=== PATIENT | male | born 1980 | race Caucasian/White ===

== ENCOUNTER 2018-03-04 16:35 | Emergency (ER) | payer SELFPAY ==
[2018-03-04] MEDS ORDERED: FENTANYL CITR 100 MCG/2 ML ONE (17:21)
[2018-03-04] MEDS ORDERED: INSULIN -REGULAR HUMAN 50 UNIT/0.5 ML ML ONE ×4 (17:21→18:42)
[2018-03-04] MEDS ORDERED: ONDANSETRON 4 MG/2 ML VIAL ONE ×2 (17:22→18:35)
[2018-03-04] MEDS ORDERED: NA CHLORIDE 0.9% 2,000 ML ONE (17:22)
[2018-03-04 17:44] LABS: Absolute Lymphocytes (CBC) 0.4 K/uL (0.7-4.9); Absolute Monocytes 0.5 K/uL (0.1-1.3); Absolute Neutrophil 2.6 K/uL (1.8-8.0); Basophils % 0.4 % (0-1.3); Eosinophils % 1.5 % (0-4.4); Hematocrit 37.8 % (39.6-49.0); Lymphocytes % 10.1 % (15.3-44.8); MCH 28.1 pg (27.0-35.0); MCV 87.1 fL (80-100); MPV 8.3 fL (7.6-11.3); Monocytes % 14.1 % (3.3-12.3); RBC Red Blood Cell Count 4.35 M/uL (4.33-5.43)
[2018-03-04] MEDS ORDERED: CLINDAMYCIN 900MG/D5W 900 MG/50 ML BAG IV ONE (17:45)
[2018-03-04 17:48] LABS: Protime INR 1.13
[2018-03-04 17:56] LABS: Bicarbonate 20 mEq/L (21-31); Lipase 22 U/L (22-51); Potassium 3.5 mEq/L (3.6-5.0); Sodium Level 129 mEq/L (135-145)
[2018-03-04 18:02] LABS: ALT/SGPT 31 IU/L (10-60); AST/SGOT 31 IU/L (10-42); Albumin 3.4 g/dL (3.2-5.5); Alkaline Phosphatase 135 IU/L (42-121); BUN Blood Urea Nitrogen 9 mg/dL (6-20); Bilirubin Direct 0.5 mg/dL (0-0.2); Bilirubin Total 1.4 mg/dL (0.3-1.2); Creatine Phosphokinase 115 IU/L (22-269); Magnesium 1.8 mg/dL (1.8-2.5); Protein, Total 7.5 g/dL (6.0-8.3)
[2018-03-04 18:03] LABS: Barbiturates NEGATIVE; Benzodiazepines NEGATIVE; Cocaine NEGATIVE; METHAMPHETAM NEGATIVE; Opiates NEGATIVE; Phencyclidine NEGATIVE; THC Cannibis NEGATIVE
[2018-03-04 18:05] LABS: CKMB Creatine Kinase MB 2.8 ng/ml (0.3-4.0)
[2018-03-04 18:10] LABS: Glucose Level 474 mg/dL (65-120)
[2018-03-04 18:11] LABS: Anisocytosis 1+; Blood Morphology Comment NOTED (NOT SEEN); Platelet Estimate DECR; Urine White Blood Cell Casts OK
[2018-03-04] MEDS ORDERED: POTASSIUM 25 MEQ EFFERV TAB ONE (18:27)
[2018-03-04] MEDS ORDERED: MORPHINE 4 MG/ML SYR ONE (18:35)
--- NOTE | 2018-03-04 18:40 | RAD REPORT ---
EXAM DESCRIPTION: CT - Facial Bones W Con Mpr - 03/04/2018 6:21 pm CLINICAL HISTORY: Facial pain TECHNIQUE: Computed axial tomography of the face was obtained. Coronal and sagittal reconstruction w as performed. 50 cc Isovue-300 Mr. intravenously with coronal sagittal reconstruction All CT scans are performed using dose optimization technique as appropriate and may include automated exposure control or mA/KV adjustment according to patient size. FINDINGS: The parotid and submandibular glands appear unremarkable. Fluid within the sinuses and mastoids is not noted. Globes are normal size and density. The periorbital fat is clear. Lucencies surrounds several teeth. A soft tissue abscess is not noted IMPRESSION: Lucency surrounding several indicative of caries.
--- NOTE | 2018-03-04 18:42 | RAD REPORT ---
EXAM DESCRIPTION: Sarath Single View03/04/2018 5:17 pm CLINICAL HISTORY: Cough COMPARISON: none FINDINGS: The lungs appear clear of acute infiltrate. The heart is normal size IMPRESSION: No acute abnormalities displayed
[2018-03-04 18:45] LABS: Urine Blood TRACE (NEG); Urine Glucose 3+ (NEG); Urine Protein NEGATIVE (NEG); Urine pH 5.5 (5.0-7.0)
--- NOTE | 2018-03-04 18:48 | EDPHYS ---
Physician Documentation [facility] Name: Christian Oneal Age: 37 yrs Sex: Male : 1980 Arrival Date: 03/04/2018 Time: 16:42 Bed 24 Private MD: ED Physician Tej Sy HPI: 03/04 17:01 This 37 yrs old Male presents to ER via EMS with complaints of dental pain jorge luis and uncontrolled diabetes. 17:01 The patient presents with broken tooth/teeth, lost tooth/teeth, pain, redness, jorge luis swelling. The problem is located in the lower right central incisor, lower right lateral incisor, lower right cuspid, lower right first bicuspid and lower right second bicuspid. Onset: The symptoms/episode began/occurred 3 day(s) ago. Duration: The symptoms are continuous, and are steadily getting worse. Modifying factors: The symptoms are alleviated by nothing, the symptoms are aggravated by air, chewing. Associated signs and symptoms: The patient has no apparent associated signs or symptoms. Severity of symptoms: At their worst the symptoms were moderate, in the emergency department the symptoms are unchanged. The patient has not experienced similar symptoms in the past. Historical: - Allergies: 16:53 No Known Allergies; mb3 - Home Meds: 16:53 Humalog 100 unit/mL subcutaneous soln after meals and before bedtime for Type 2 mb3 Diabetes Mellitus [Active]; lisinopril 10 mg Oral tab 1 tab once daily [Active]; nortriptyline 75 mg Oral cap 1 cap once daily [Active]; Seroquel 400 mg Oral tab 1 tab once daily [Active]; Prozac 40 mg Oral cap 1 cap once daily [Active]; Propranolol Oral [Active]; - PMHx: 16:53 Hypertension; Diabetes - IDDM; Cirrhosis; Ulcers; GI Bleed; mb3 - PSHx: 16:53 paracentisis; upper gi perforatoin; varices; mb3 - Immunization history:: Adult Immunizations up to date. - Social history:: Smoking status: Patient/guardian denies using tobacco. - Family history:: not pertinent. ROS: 17:01 Constitutional: Negative for fever, chills, and weight loss, Eyes: Negative for injury, jorge luis pain, redness, and discharge, Neck: Negative for injury, pain, and swelling, Cardiovascular: Negative for chest pain, palpitations, and edema, Respiratory: Negative for shortness of breath, cough, wheezing, and pleuritic chest pain, Abdomen/GI: Negative for abdominal pain, nausea, vomiting, diarrhea, and constipation, Back: Negative for injury and pain, : Negative for injury, bleeding, discharge, and swelling, MS/Extremity: Negative for injury and deformity, Skin: Negative for injury, rash, and discoloration, Neuro: Negative for headache, weakness, numbness, tingling, and seizure, Psych: Negative for depression, anxiety, suicide ideation, homicidal ideation, and hallucinations, Allergy/Immunology: Negative for hives, rash, and allergies, Endocrine: Negative for neck swelling, polydipsia, polyuria, polyphagia, and marked weight changes, Hematologic/Lymphatic: Negative for swollen nodes, abnormal bleeding, and unusual bruising. 17:01 ENT: Positive for Gum pain Teeth pain Exam: 17:01 Constitutional: This is a well developed, well nourished patient who is awake, alert, jorge luis and in no acute distress. Eyes: Pupils equal round and reactive to light, extra-ocular motions intact. Lids and lashes normal. Conjunctiva and sclera are non-icteric and not injected. Cornea within normal limits. Periorbital areas with no swelling, redness, or edema. ENT: Nares patent. No nasal discharge, no septal abnormalities noted. Tympanic membranes are normal and external auditory canals are clear. Oropharynx with no redness, swelling, or masses, exudates, or evidence of obstruction, uvula midline. Mucous membranes moist. Neck: Trachea midline, no thyromegaly or masses palpated, and no cervical lymphadenopathy. Supple, full range of motion without nuchal rigidity, or vertebral point tenderness. No Meningismus. Chest/axilla: Normal chest wall appearance and motion. Nontender with no deformity. No lesions are appreciated. Cardiovascular: Regular rate and rhythm with a normal S1 and S2. No gallops, murmurs, or rubs. Normal PMI, no JVD. No pulse deficits. Respiratory: Lungs have equal breath sounds bilaterally, clear to auscultation and percussion. No rales, rhonchi or wheezes noted. No increased work of breathing, no retractions or nasal flaring. Abdomen/GI: Soft, non-tender, with normal bowel sounds. No distension or tympany. No guarding or rebound. No evidence of tenderness throughout. Back: No spinal tenderness. No costovertebral tenderness. Full range of motion. Male : Normal genitalia with no discharge or lesions. Skin: Warm, dry with normal turgor. Normal color with no rashes, no lesions, and no evidence of cellulitis. MS/ Extremity: Pulses equal, no cyanosis. Neurovascular intact. Full, normal range of motion. Neuro: Awake and alert, GCS 15, oriented to person, place, time, and situation. Cranial nerves II-XII grossly intact. Motor strength 5/5 in all extremities. Sensory grossly intact. Cerebellar exam normal. Normal gait. Psych: Awake, alert, with orientation to person, place and time. Behavior, mood, and affect are within normal limits. 17:01 Head/face: Exam is negative for 17:01 ENT: Mouth: Oral mucosa: normal, pink and intact, Gums: noted to have cellulitis, reddened, swollen, on the lower right central incisor, lower right lateral incisor, lower right cuspid, lower right first bicuspid and lower right second bicuspid. Vital Signs: 16:57 BP 160 / 89; Pulse 114; Resp 18; Temp 99.2; Pulse Ox 95% ; Weight 108.86 kg; Height 6 mb3 ft. (182.88 cm); Pain 10/10; 18:30 BP 159 / 97; Pulse 111; Resp 18; Pulse Ox 97% on R/A; mb3 19:27 BP 151 / 93; Pulse 106; Resp 16; Pulse Ox 100% on R/A; mb3 16:57 Body Mass Index 32.55 (108.86 kg, 182.88 cm) 3 MDM: 16:49 Patient medically screened. [facility] 17:04 Data reviewed: vital signs, nurses notes, lab test result(s), EKG, radiologic studies, [facility] CT scan, plain films. 03/04 17: Order name: Basic Metabolic Panel; Complete Time: 18:12 [facility] 03/04 17: Order name: BNP; Complete Time: 18:12 [facility] 03/04 17: Order name: CBC with Diff; Complete Time: 18:12 [facility] 03/04 17: Order name: Ckmb; Complete Time: 18:12 [facility] 03/04 17: Order name: CPK; Complete Time: 18:12 jorge luis 03/04 17:01 Order name: LFT's; Complete Time: 18:12 jorge luis 03/04 17:01 Order name: Magnesium; Complete Time: 18:12 jorge luis 03/04 17:01 Order name: PT-INR; Complete Time: 18:12 jorge luis 03/04 17:01 Order name: Ptt, Activated; Complete Time: 18:12 jorge luis 03/04 17:01 Order name: Troponin (emerg Dept Use Only); Complete Time: 18:12 jorge luis 03/04 17:01 Order name: Lipase; Complete Time: 18:12 jorge luis 03/04 17:01 Order name: UDS; Complete Time: 18:12 jorge luis 03/04 17:45 Order name: Urine Dipstick--Ancillary (enter results); Complete Time: 18:46 ag 03/04 17:50 Order name: CBC Smear Scan; Complete Time: 18:12 EDMS 03/04 17:01 Order name: XRAY Chest (1 view); Complete Time: 18:46 [facility] 03/04 17:01 Order name: EKG; Complete Time: 17:01 jorge luis 03/04 17:01 Order name: Cardiac monitoring; Complete Time: 17:59 jorge luis 03/04 17:01 Order name: EKG - Nurse/Tech [facility] 03/04 17:01 Order name: CT Facial Bones W/ Con \T\ Mpr; Complete Time: 18:46 [facility] 03/04 17:01 Order name: IV Saline Lock; Complete Time: 17:59 [facility] 03/04 17:01 Order name: Labs collected and sent; Complete Time: 17:59 [facility] 03/04 17:01 Order name: O2 Per Protocol; Complete Time: 17:59 [facility] 03/04 17:01 Order name: O2 Sat Monitoring; Complete Time: 17:59 [facility] 03/04 17:01 Order name: Urine Dipstick-Ancillary (obtain specimen); Complete Time: 17:59 [facility] 03/04 18:13 Order name: Blood Glucose Level; Complete Time: 18:53 jorge luis Administered Medications: 17:30 Drug: Insulin Regular Human 10 units {Co-Signature: ed1 (Marta Coulter LVN).} Route: IVP; mb3 Site: right antecubital; 19:47 Follow up: Response: No adverse reaction mb3 17:30 Drug: Insulin Regular Human 10 units {Co-Signature: ed1 (Marta Coulter MACHINE I CUTTER).} Route: mb3 Sub-Q; Site: right upper arm; 19:46 Follow up: Response: No adverse reaction mb3 17:35 Drug: NS 0.9% 1000 ml Route: IV; Rate: 1 bolus; Site: left wrist; mb3 17:35 Drug: fentaNYL (PF) 50 mcg Route: IVP; Site: right antecubital; mb3 17:35 Drug: Zofran 4 mg Route: IVP; Site: right antecubital; mb3 19:47 Follow up: Response: No adverse reaction mb3 17:50 Drug: NS 0.9% 1000 ml Route: IV; Rate: 1 bolus; Site: right antecubital; mb3 17:56 Drug: Clindamycin 900 mg Route: IVPB; Infused Over: 30 mins; Site: right antecubital; mb3 18:10 Drug: Potassium Effervescent Tablet 50 mEq Route: PO; mb3 19:41 Follow up: Response: No adverse reaction mb3 18:30 Drug: Insulin Regular Human 10 units {Co-Signature: ed1 (Marta Coulter MACHINE I CUTTER).} Route: IVP; mb3 Site: right wrist; 19:45 Follow up: Response: No adverse reaction mb3 18:30 Drug: morphine 4 mg Route: IVP; Site: right wrist; mb3 19:45 Follow up: Response: No adverse reaction mb3 18:30 Drug: Zofran 4 mg Route: IVP; Site: right wrist; mb3 19:45 Follow up: Response: No adverse reaction mb3 Point of Care Testing: Blood Glucose: 18:30 Blood Glucose: 333 mg/dL; mb3 19:27 Blood Glucose: 257 mg/dL; mb3 Ranges: Critical Glucose Levels:Adult <50 mg/dl or >400 mg/dl <40 mg/dl or >180 mg/dl Disposition: 03/04/18 18:47 Discharged to Home. Impression: Dental caries, Dental alveolar anomalies, Type 1 diabetes mellitus, Unspecified cirrhosis of liver, Hypokalemia. - Condition is Stable. - Discharge Instructions: Dental Abscess, Dental Injury, Dental Pain, Potassium Content of Foods, Dental Pain, [id number], Hypokalemia. - Prescriptions for Clindamycin HCl 300 mg Oral Capsule - take 1 capsule by ORAL route every 6 hours for 10 days; 40 capsule. Tylenol- Codeine #3 300-30 mg Oral Tablet - take 2 tablets by ORAL route every 6 hours As needed; 24 tablet. - Medication Reconciliation Form, Thank You Letter, Antibiotic Education, Prescription Opioid Use form. - Follow up: Private Physician; When: 2 - 3 days; Reason: Recheck today's complaints, Continuance of care, Re-evaluation by your physician. Follow up: Rajiv Batista; When: 2 - 3 days; Reason: Recheck today's complaints, Continuance of care, Re-evaluation by your physician. - Problem is new. - Symptoms have improved. Signatures: Dispatcher [employer] EDMS Tej Sy MD MD cha Barnett, Mark RN RN mb3 Marta Coulter MACHINE I CUTTER ed1 Corrections: (The following items were deleted from the chart) 19:51 18:47 03/04/2018 18:47 Discharged to Home. Impression: Dental caries; Dental alveolar mb3 anomalies; Type 1 diabetes mellitus; Unspecified cirrhosis of liver; Hypokalemia. Condition is Stable. Discharge Instructions: Dental Abscess, Dental Injury, Dental Pain, Dental Pain, [id number], Potassium Content of Foods, Hypokalemia. Prescriptions for Clindamycin HCl 300 mg Oral Capsule - take 1 capsule by ORAL route every 6 hours for 10 days; 40 capsule, Tylenol-Codeine #3 300-30 mg Oral Tablet - take 2 tablets by ORAL route every 6 hours As needed; 24 tablet. and Forms are Medication Reconciliation Form, Thank You Letter, Antibiotic Education, Prescription Opioid Use. Follow up: Private Physician; When: 2 - 3 days; Reason: Recheck today's complaints, Continuance of care, Re-evaluation by your physician. Follow up: Rajiv Batista; When: 2 - 3 days; Reason: Recheck today's complaints, Continuance of care, Re-evaluation by your physician. Problem is new. Symptoms have improved. jorge luis
--- NOTE | 2018-03-04 18:48 | ER ---
Nurse's Notes [facility] Name: Christian Oneal Age: 37 yrs Sex: Male : 1980 Arrival Date: 03/04/2018 Time: 16:42 Bed 24 Private MD: Diagnosis: Dental caries;Dental alveolar anomalies;Type 1 diabetes mellitus;Unspecified cirrhosis of liver;Hypokalemia Presentation: 03/04 16:42 Presenting complaint: Patient states: right side lower tooth ache, started yesterday, mb3 pt states have not been taking diabetes medication because he is waiting to get on medicaid/medicare. Transition of care: patient was not received from another setting of care. Onset of symptoms was March 03, 2018 at 08:00. Initial Sepsis Screen: Does the patient meet any 2 criteria? No. Patient's initial sepsis screen is negative. Does the patient have a suspected source of infection? No. Patient's initial sepsis screen is negative. Care prior to arrival: Medication(s) given: Normal saline infusion, 1000 mL, IV initiated. 20 GA, in the right antecubital area, glucose check done, too high too read. 16:42 Method Of Arrival: EMS: [facility] mb3 16:42 Acuity: NIYA 3 mb3 Triage Assessment: 16:55 General: Appears uncomfortable, obese, unkempt, Behavior is appropriate for age, mb3 anxious. Pain: Complains of pain in upper left second bicuspid, upper left first molar and upper left second molar. EENT: Poor dentition noted. Dental caries noted in upper right second molar (#2), upper right first molar (#3), upper right first bicuspid (#5), upper left central incisor (#9), upper left first bicuspid (#12), upper left first molar (#14), upper left second molar (#15), lower left first molar (#19), lower left second bicuspid (#20), lower right first bicuspid (#28), lower right first molar (#30) and lower right second molar (#31). Neuro: No deficits noted. Cardiovascular: No deficits noted. Heart tones S1 S2 present. Respiratory: No deficits noted. Airway is patent Respiratory effort is even, unlabored, Respiratory pattern is regular, symmetrical, Breath sounds are clear bilaterally. GI: No signs and/or symptoms were reported involving the gastrointestinal system. Bowel sounds present X 4 quads. : No signs and/or symptoms were reported regarding the genitourinary system. Historical: - Allergies: 16:53 No Known Allergies; mb3 - Home Meds: 16:53 Humalog 100 unit/mL subcutaneous soln after meals and before bedtime for Type 2 mb3 Diabetes Mellitus [Active]; lisinopril 10 mg Oral tab 1 tab once daily [Active]; nortriptyline 75 mg Oral cap 1 cap once daily [Active]; Seroquel 400 mg Oral tab 1 tab once daily [Active]; Prozac 40 mg Oral cap 1 cap once daily [Active]; Propranolol Oral [Active]; - PMHx: 16:53 Hypertension; Diabetes - IDDM; Cirrhosis; Ulcers; GI Bleed; mb3 - PSHx: 16:53 paracentisis; upper gi perforatoin; varices; mb3 - Immunization history:: Adult Immunizations up to date. - Social history:: Smoking status: Patient/guardian denies using tobacco. - Family history:: not pertinent. Screenin:55 Abuse screen: Denies threats or abuse. Nutritional screening: No deficits noted. mb3 Tuberculosis screening: No symptoms or risk factors identified. Fall Risk None identified. Assessment: 18:54 Reassessment: Patient appears in no apparent distress at this time. No changes from 3 previously documented assessment. Patient and/or family updated on plan of care and expected duration. Pain level reassessed. Patient is alert, oriented x 3, equal unlabored respirations, skin warm/dry/pink. Patient states feeling better. Patient states symptoms have improved. General: see triage assessment. Vital Signs: 16:57 BP 160 / 89; Pulse 114; Resp 18; Temp 99.2; Pulse Ox 95% ; Weight 108.86 kg; Height 6 mb3 ft. (182.88 cm); Pain 10/10; 18:30 BP 159 / 97; Pulse 111; Resp 18; Pulse Ox 97% on R/A; mb3 19:27 BP 151 / 93; Pulse 106; Resp 16; Pulse Ox 100% on R/A; mb3 16:57 Body Mass Index 32.55 (108.86 kg, 182.88 cm) 3 ED Course: 16:42 Patient arrived in ED. mb3 16:42 Jose Alejandro Lorenzo, GRAHAM is Primary Nurse. mb3 16:44 Triage completed. mb3 16:48 Tej Sy MD is Attending Physician. jorge luis 17:15 XRAY Chest (1 view) In Process Unspecified. EDMS 17:15 X-ray completed. Portable x-ray completed in exam room. Patient tolerated procedure jw2 well. 17:23 Radiology exam delayed due to lab results not completed at this time. (BUN/Creatinine). cw1 18:20 CT completed. Patient tolerated procedure well. Patient moved back from CT. bq 18:22 CT Facial Bones W/ Con \T\ Mpr In Process Unspecified. EDMS 18:47 Rajiv Batista DDS is Referral Physician. jorge luis 18:55 Arm band placed on right wrist. mb3 18:56 Patient has correct armband on for positive identification. Bed in low position. Call mb3 light in reach. Side rails up X 1. 19:39 No provider procedures requiring assistance completed. IV discontinued, intact, mb3 bleeding controlled, No redness/swelling at site. Pressure dressing applied. Administered Medications: 17:30 Drug: Insulin Regular Human 10 units {Co-Signature: ed1 (Marta Coulter MOLD FILLER AND DRAINER).} Route: IVP; mb3 Site: right antecubital; 19:47 Follow up: Response: No adverse reaction mb3 17:30 Drug: Insulin Regular Human 10 units {Co-Signature: ed1 (Marta Coulter MOLD FILLER AND DRAINER).} Route: mb3 Sub-Q; Site: right upper arm; 19:46 Follow up: Response: No adverse reaction mb3 17:35 Drug: NS 0.9% 1000 ml Route: IV; Rate: 1 bolus; Site: left wrist; mb3 17:35 Drug: fentaNYL (PF) 50 mcg Route: IVP; Site: right antecubital; mb3 17:35 Drug: Zofran 4 mg Route: IVP; Site: right antecubital; mb3 19:47 Follow up: Response: No adverse reaction mb3 17:50 Drug: NS 0.9% 1000 ml Route: IV; Rate: 1 bolus; Site: right antecubital; mb3 17:56 Drug: Clindamycin 900 mg Route: IVPB; Infused Over: 30 mins; Site: right antecubital; mb3 18:10 Drug: Potassium Effervescent Tablet 50 mEq Route: PO; mb3 19:41 Follow up: Response: No adverse reaction mb3 18:30 Drug: Insulin Regular Human 10 units {Co-Signature: ed1 (Marta Coulter LVN).} Route: IVP; mb3 Site: right wrist; 19:45 Follow up: Response: No adverse reaction mb3 18:30 Drug: morphine 4 mg Route: IVP; Site: right wrist; mb3 19:45 Follow up: Response: No adverse reaction mb3 18:30 Drug: Zofran 4 mg Route: IVP; Site: right wrist; mb3 19:45 Follow up: Response: No adverse reaction mb3 Point of Care Testing: Blood Glucose: 18:30 Blood Glucose: 333 mg/dL; mb3 19:27 Blood Glucose: 257 mg/dL; mb3 Ranges: Outcome: 18:47 Discharge ordered by . jorge luis 19:40 Discharged to home ambulatory. mb3 19:40 Condition: stable 19:40 Discharge instructions given to patient, Instructed on discharge instructions, follow up and referral plans. medication usage, Demonstrated understanding of instructions, follow-up care, medications, Prescriptions given X 2. 19:51 Patient left the ED. mb3 Signatures: Dispatcher [employer] EDTej Fuller MD MD cha Quilty, Betty bq Woodley, Crystal cw1 Martha Trujillo2 Jose Alejandro Lorenzo, GRAHAM RN mb3 Marta Coulter LVN ed1 Corrections: (The following items were deleted from the chart) 16:45 16:42 Presenting complaint: Patient states: right side lower tooth ache, started mb3 yesterday mb3
[2018-03-04 19:55] VITALS: TEMP 99.2
[2018-03-04 19:58] VITALS: BP 151/93; O2SAT 100
--- NOTE | 2018-03-05 08:00 | EKG ---
Test Date: 2018-03-04 Test Time: 19:21:30 Project Management: ZARA MEASUREMENT RESULTS: Intervals: Rate: 105 FL: 162 QRSD: 108 QT: 366 QTc: 483 [place]: P: 66 FL: 162 QRS: 18 T: 43 INTERPRETIVE STATEMENTS: Sinus tachycardia Otherwise normal ECG No previous ECG available for comparison Electronically Signed On 03-05-18 07:58:53 CDT by Sohan Ellsworth
== END 2018-03-04 19:51 | disposition home or self-care (01) ==
LOC: ER 16:35
DX: K02.9 Dental caries, unspecified (principal); M26.70 Unspecified alveolar anomaly; E10.9 Type 1 diabetes mellitus without complications; E87.6 Hypokalemia; K74.60 Unspecified cirrhosis of liver; I10 Essential (primary) hypertension; Z79.4 Long term (current) use of insulin
CPT/HCPCS: 36415; 70487; 71045; 76377; 80048; 80076; 80307; 81003; 82550; 82553; 82962; 83690; 83735; 83880; 84484; 85025; 85610; 85730; 93005; 96372; 96374; 96375; 99284; J2405; J3010; J7030; Q9967

== ENCOUNTER 2018-03-05 07:35 | Emergency (ER) | payer SELFPAY ==
[2018-03-05] MEDS ORDERED: NA CHLORIDE 0.9% 1,000 ML IV ONE (07:36)
[2018-03-05] MEDS ORDERED: Caclcium Chloride 10% INJ SYR IV ONE (07:36)
[2018-03-05] MEDS ORDERED: EPINEPHrine 1 MG/10 ML SYR IV ONE (07:36)
[2018-03-05] MEDS ORDERED: MAGNESIUM SULF 1GM/2ML VIAL IV ONE (07:36)
[2018-03-05] MEDS ORDERED: NA CHLORIDE 0.9% 1,000 ML ONE ×3 (07:46→12:20)
[2018-03-05] MEDS ORDERED: INSULIN -REGULAR HUMAN 50 UNIT/0.5 ML ML ONE (08:05)
[2018-03-05 08:32] LABS: Absolute Lymphocytes (CBC) 0.6 K/uL (0.7-4.9); Absolute Monocytes 0.9 K/uL (0.1-1.3); Absolute Neutrophil 8.4 K/uL (1.8-8.0); Basophils % 0.4 % (0-1.3); Eosinophils % 0.3 % (0-4.4); Hematocrit 28.9 % (39.6-49.0); Lymphocytes % 5.9 % (15.3-44.8); MCH 28.6 pg (27.0-35.0); MCV 97.2 fL (80-100); MPV 9.8 fL (7.6-11.3); RBC Red Blood Cell Count 2.98 M/uL (4.33-5.43)
[2018-03-05 09:09] LABS: Albumin 2.3 g/dL (3.2-5.5); Bilirubin Direct 0.5 mg/dL (0-0.2); Bilirubin Total 1.5 mg/dL (0.3-1.2); Protein, Total 5.3 g/dL (6.0-8.3)
[2018-03-05 09:17] LABS: Potassium 6.5 mEq/L (3.6-5.0)
[2018-03-05] MEDS ORDERED: SODIUM BICARB 50 MEQ/50ML VIAL ONE ×2 (09:24→12:49)
[2018-03-05] MEDS ORDERED: INSULIN -REGULAR HUMAN 100 UNIT in NA CHLORIDE 0.9% 100 ML IV SCH ×3 (09:30→13:00)
--- NOTE | 2018-03-05 09:56 | RAD REPORT ---
EXAM DESCRIPTION: CT - Abdomen Pelvis Wo Contrast - 03/05/2018 9:35 am CLINICAL HISTORY: Abdominal pain COMPARISON: None TECHNIQUE: Computed axial tomography of the abdomen and pelvis was obtained. IV and oral contrast we re not requested. All CT scans are performed using dose optimization technique as appropriate and may include automated exposure control or mA/KV adjustment according to patient size. FINDINGS: The evaluation of solid organs, vessels and bowel is limited secondary to the lack of con trast administration. A cirrhotic liver is seen. Spleen measures 16 centimeters . Pancreas, adrenals and kidneys appear grossly normal There is no evidence of diverticulitis. A moderate amount of stool is present. Cecum is mildly dilate d measuring 7. Centimeters IMPRESSION: Cirrhosis Moderate amount of stool within the colon
--- NOTE | 2018-03-05 10:07 | ER ---
Nurse's Notes [facility] Name: Christian Oneal Age: 37 yrs Sex: Male : 1980 Arrival Date: 03/05/2018 Time: 07:42 Bed 4 Private MD: Diagnosis: Diabetic Ketoacidosis;Hypotension;Acute kidney failure Presentation: 03/05 07:43 Care prior to arrival: IV initiated. 20 GA, in the right antecubital area, Glucose sg check: 387. 07:43 Acuity: NIYA 3 sg 07:43 Method Of Arrival: EMS: [facility] sg 07:50 Presenting complaint: EMS states: pt was seen here yesterday and treated for toothache sg and high blood sugar, today pt c/o abd pain diffuse, non radiating, toothache and blood sugar reading greater than 500 at home, pt reports " i just want water." pt educated to wait for lab results and imaging if ordered prior to drinking, pt stated understanding, IV fluids infusing at this time. Transition of care: patient was not received from another setting of care. Onset of symptoms was March 04, 2018. Initial Sepsis Screen: Does the patient meet any 2 criteria? RR > 20 per min. Mean Arterial Pressure (MAP) < 65. Yes Does the patient have a suspected source of infection? No. Patient's initial sepsis screen is negative. 14:02 Compressions began at 12:53. ph Triage Assessment: 07:43 General: Appears in no apparent distress. uncomfortable, ill, well groomed, well sg developed, well nourished, Behavior is cooperative, appropriate for age, drowsy. Pain: Complains of pain in abdomen and right buccal mucosa. EENT: Nares are clear Oral mucosa is moist. Poor dentition noted. Reports pain in right buccal mucosa. Neuro: Level of Consciousness is awake, obeys commands, lethargic, Oriented to person, time, situation, Language Translator are equal bilaterally Moves all extremities. Speech is normal, Facial symmetry appears normal. Cardiovascular: Patient's skin is warm and dry. Respiratory: Airway is patent Respiratory effort is even, Respiratory pattern is symmetrical, tachypnea Breath sounds are clear. Derm: Skin is intact, Skin is dry, Skin is pale, Skin temperature is warm. Historical: - Allergies: 07:53 No Known Allergies; sg - Home Meds: 07:53 Humalog 100 unit/mL Sub-Q soln after meals and before bedtime for Type 2 Diabetes sg Mellitus [Active]; lisinopril 10 mg Oral tab 1 tab once daily [Active]; nortriptyline 75 mg Oral cap 1 cap once daily [Active]; Propranolol Oral [Active]; Prozac 40 mg Oral cap 1 cap once daily [Active]; Seroquel 400 mg Oral tab 1 tab once daily [Active]; - PMHx: 07:43 Cirrhosis; Diabetes - IDDM; GI Bleed; Hypertension; Ulcers; sg - PSHx: 07:43 paracentisis; upper gi perforatoin; varices; sg - Immunization history:: Adult Immunizations not up to date. - Social history:: Smoking status: Patient/guardian denies using tobacco. - Family history:: not pertinent. - Hospitalizations: : No recent hospitalization is reported. Screenin:40 Abuse screen: Denies threats or abuse. Denies injuries from another. Nutritional sg screening: No deficits noted. Tuberculosis screening: No symptoms or risk factors identified. Never had TB. Fall Risk None identified. Assessment: 08:20 General: Appears in no apparent distress. uncomfortable, ill, well groomed, well sg developed, well nourished, Behavior is cooperative, appropriate for age, drowsy. Neuro: No deficits noted. Cardiovascular: Heart tones S1 S2 present Capillary refill is brisk in bilateral fingers Chest pain is denied. Respiratory: Airway is patent Respiratory effort is even, labored, Respiratory pattern is symmetrical, tachypnea with a rate of 22 breaths per minute. GI: Abdomen is round distended, obese, Bowel sounds present X 4 quads. Reports lower abdominal pain, nausea. : No signs and/or symptoms were reported regarding the genitourinary system. EENT: No signs and/or symptoms were reported regarding the EENT system. Derm: Skin is pink, warm \\T\\ dry. Musculoskeletal: No signs and/or symptoms reported regarding the musculoskeletal system. 08:20 Musculoskeletal: Range of motion: intact in all extremities, Swelling present in right sg [place], anterior aspect of right ankle, dorsum of right foot, left [place], anterior aspect of left ankle and dorsum of left foot. 08:53 Reassessment: Patient appears in no apparent distress at this time. Patient is alert, sg oriented x 3, equal unlabored respirations, skin warm/dry/pink. pt requesting ice water at this time, notified, ordered for pt to be NPO, pt educated, pt stated understanding, awaiting CT scan at this time, awaiting lab results, notified of pt VS, no new orders received, will continue to monitor Patient states symptoms have not improved. 09:48 Reassessment: Patient appears in no apparent distress at this time. Patient is alert, sg oriented x 3, equal unlabored respirations, skin warm/dry/pink. awaiting CT scan results at this time, insulin drip initiated with Sanjuana STEVENSON double check performed Patient states symptoms have not improved. 10:00 Reassessment: Patient appears in no apparent distress at this time. Patient is alert, sg oriented x 3, equal unlabored respirations, skin warm/dry/pink. pt c/o of pain in abd at this time, notified, awaiting orders at this time, will continue to monitor Patient states symptoms have not improved. 10:15 Reassessment: Patient is alert, oriented x 3, equal unlabored respirations, skin sg warm/dry/pink. at bedside evaluating pt at this time, TANYA BARKER at bedside at this time Patient states symptoms have not improved. 10:23 Reassessment: pt reports increased anxiety, distraction techniques offere, pt reports sg no effect, notified pt c/o anxiety at this time, no new orders received, will continue to monitor. General: Behavior is cooperative, appropriate for age, anxious, restless. 10:45 Reassessment: Patient appears in no apparent distress at this time. Patient is alert, sg oriented x 3, equal unlabored respirations, skin warm/dry/pink. at bedside evaluating pt at this time, pt reports " I need pain medication, right now. " instructing pt on VS and the effect of pain medication, pt reports " I dont care, itll be ok, just give me something to please help with this pain." at bedside with pt at this time Patient states symptoms have not improved. 10:48 Reassessment: pt reports taking lisinopril today but unsure of how much, reports taking sg motrin prior to calling EMS, pt reports drinking four beers last night, reports uses alcohol, beers daily. 11:11 Reassessment: pt resting quietly at this time, eyes closed, resp even labored, pt sg remains on monitors at this time, will continue to monitor. Reassessment:. 11:32 Reassessment: Patient appears in no apparent distress at this time. Patient is alert, sg oriented x 3, equal unlabored respirations, skin warm/dry/pink. pt still c/o of pain at this time, pt states " when are you going to give me the pain medication." pt instructed that pain medication was administered as ordered. pt stated understanding Patient states symptoms have not improved. 12:28 Reassessment: pt observed sitting in exam room [address] with head resting on door sg frame, pt encouraged to please stand up, pt reports " i want to lay on the floor." pt assisted back into bed with help of RUSSELL RN, pt in bed at this time, pt DC'd IV to right hand, gauze applied with pressure to control bleeding, pt placed in clean gown, place back to monitors. Respiratory: Airway is patent Respiratory effort is. 12:30 Neuro: Level of Consciousness is unresponsive. Respiratory: Airway is patent sg Respiratory effort is relaxed, Respiratory pattern is agonal notified, pt assisted with BVM while transport via stretcher to exam room 4 for intubation. Derm: Skin is dusky, pale, Skin temperature is warm. 12:35 Reassessment: remains at bedside for intubation , ventilations assisted with sg BVM, a nasal trumpet applied to left nare. Reassessment: Tanya RT at bedside for intubation, pt to be intubated at this time. Respiratory: Airway is patent via nasal trumpet Respiratory pattern is agonal. Derm: Skin is pink, Skin temperature is warm. Derm: Skin is pink. Vital Signs: 07:49 BP 80 / 40; Pulse 108; Resp 27 S; Temp 97.4; Pulse Ox 96% on R/A; Pain 7/10; sg 08:15 BP 95 / 41; Pulse 109; Resp 27 S; Pulse Ox 96% on R/A; Pain 7/10; sg 09:41 Pulse 113 MON; Resp 28 S; Pulse Ox 98% on R/A; sg 10:10 BP 142 / 60; Pulse 110; Resp 24 S; Pulse Ox 97% on R/A; Pain 7/10; sg 10:34 BP 94 / 46; Pulse 110; Pulse Ox 98% on R/A; sg 11:29 BP 102 / 44; Pulse 104; Pulse Ox 97% on R/A; sg 12:00 BP 90 / 47; Pulse 112; Resp 26 S; Pulse Ox 96% on R/A; Pain 10/10; sg 13:23 Temp 95.1(R); ph 10:10 pt repositioned d/t laying on arm with BP cuff, will retake BP sg Vitals: 12:53 Cardiac Rhythm Assessment [place]ytole. ph 12:56 Cardiac Rhythm Assessment Asytole. ph 12:58 Cardiac Rhythm Assessment Asytole. ph 13:00 Cardiac Rhythm Assessment Asytole. ph 13:02 Cardiac Rhythm Assessment Asytole. ph 13:06 Cardiac Rhythm Assessment Asytole. ph 13:09 Cardiac Rhythm Assessment PEA. ph 13:13 Cardiac Rhythm Assessment PEA. ph 13:17 Cardiac Rhythm Assessment PEA. ph 13:21 Cardiac Rhythm Assessment PEA. ph 13:24 Cardiac Rhythm Assessment PEA. ph Baldwin Coma Score: 08:15 Eye Response: spontaneous(4). Verbal Response: oriented(5). Motor Response: obeys sg commands(6). Total: 15. 09:41 Eye Response: spontaneous(4). Verbal Response: oriented(5). Motor Response: obeys sg commands(6). Total: 15. 10:10 Eye Response: spontaneous(4). Verbal Response: oriented(5). Motor Response: obeys sg commands(6). Total: 15. ED Course: 07:40 Patient has correct armband on for positive identification. Placed in gown. Bed in low sg position. Call light in reach. Side rails up X2. child monitor on. Pulse ox on. NIBP on. 07:42 Patient arrived in ED. sg 07:43 Heber Hannah MD is Attending Physician. rn 07:43 Eliu Mcneil, GRAHAM is Primary Nurse. sg 07:44 Triage completed. sg 07:44 Arm band placed on. sg 07:45 Maintain EMS IV. Dressing intact. Site clean \\T\\ dry. Gauge \\T\\ site: 20 RAC. IV is patent, sg is intact, with fluids infusing freely, with good blood return. 08:07 EKG done, by aviation electrical technician. reviewed by Heber Hannah MD. tc 08:59 Radiology exam delayed due to lab results not completed at this time. (BUN/Creatinine). cw1 09:34 CT completed. Patient tolerated procedure well. Patient moved back from CT. sj 09:35 Abdomen In Process Unspecified. EDMS 10:06 Josephine Loredo MD is Hospitalizing Provider. rn 12:53 Assisted provider with intubation using 7.5 mm ETT via oral route. ET tube secured at ph 25cm at the lips. Set up intubation tray. Intubated by Heber Hannah MD Placement verified by CO2 detector w/ + color change, auscultating bilateral breath sounds. 13:01 Assisted provider with central line placement. Set up central line tray. Triple lumen ph line placed in right femoral. Line placed by Heber Hannah MD Placement verified by blood return, Dressed with Tape, Tegaderm, central line placed as emergent procedure, no consent signed Before procedure, did Practitioner(s) obtain informed consent? No. Patient \\T\\ family education about procedure, CLABSI prevention and S/S of infection? No. Time-out/Briefing performed prior to start of procedure? No. Was handwashing/sanitizing done immediately prior to procedure? Yes. Was patient positioned to in a way to prevent air embolism? Yes. Was procedure site sterilized? Yes, with chlorhexidine. Was the site allowed to dry? Yes. Was local anesthetic and/or sedation utilized? N/A. During the procedure, did the Practitioner(s) maintain a sterile field? Yes. Were unused ports clamped during insertion? Yes. Was a 2nd qualified MD obtained after 3 unsuccessful insertion attempts? No. Was blood aspirated from each lumen? Yes. After the procedure, did the Practitioner(s) clean the site and apply a sterile dressing? Yes. 13:28 notified guera metzger to have deicer inspector pneumatic certified nutritionist come to er. bd Administered Medications: 07:48 Drug: NS 0.9% 1000 ml Route: IV; Rate: 1000 ml; Site: right antecubital; sg 08:45 Follow up: Response: No adverse reaction; IV Status: Completed infusion; IV Intake: sg 990ml 08:25 Drug: Insulin Regular Human 10 units {Co-Signature: ph (Madie Hawk RN).} Route: sg Sub-Q; Site: right upper arm; 09:30 Follow up: Response: No adverse reaction; No change in condition; Blood sugar is sg unchanged 09:28 Drug: Sodium Bicarbonate 1 amp Route: IVP; Site: right hand; sg 10:30 Follow up: Response: No adverse reaction sg 09:28 Drug: NS 0.9% 1000 ml Route: IV; Rate: 1000 ml; Site: right hand; sg 11:00 Follow up: Response: No adverse reaction; IV Status: Completed infusion; IV Intake: sg 990ml 09:49 Drug: Insulin Drip - (Insulin Regular Human 100 units, NS 0.9% 100 ml) {Co-Signature: sg iw (Sanjuana Drake RN).} Route: IV; Rate: calculated rate; Site: right hand; 11:07 Drug: fentaNYL (PF) 50 mcg Route: IVP; Site: right hand; sg 11:40 Follow up: Response: No adverse reaction; Pain is unchanged, physician notified sg 11:29 Drug: Valium 2 mg Route: PO; sg 12:00 Follow up: Response: No adverse reaction; Anxiety decreased sg 12:20 Drug: NS 0.9% 1000 ml Route: IV; Rate: 1000 ml; Site: right hand; sg 12:52 Drug: Sodium Bicarbonate 1 amp Route: IVP; Site: right antecubital; ph 12:54 Drug: EPINEPHrine 0.1mg/mL 1:10,000 1 mg Route: IVP; Site: right antecubital; ph 12:55 Drug: Sodium Bicarbonate 1 amp Route: IVP; Site: right antecubital; ph 12:56 Drug: EPINEPHrine 0.1mg/mL 1:10,000 1 mg Route: IVP; Site: right antecubital; ph 12:59 Drug: EPINEPHrine 0.1mg/mL 1:10,000 1 mg Route: IVP; Site: right antecubital; ph 13:03 Drug: EPINEPHrine 0.1mg/mL 1:10,000 1 mg Route: IVP; Site: right antecubital; ph 13:04 Drug: Calcium Chloride 1 grams Route: IVP; Site: right antecubital; ph 13:07 Drug: EPINEPHrine 0.1mg/mL 1:10,000 1 mg Route: IVP; Site: right femoral; ph 13:08 Drug: Sodium Bicarbonate 1 amp Route: IVP; Site: right femoral; ph 13:11 Drug: EPINEPHrine 0.1mg/mL 1:10,000 1 mg Route: IVP; Site: right femoral; ph 13:11 Drug: Calcium Chloride 1 grams Route: IVP; Site: right femoral; ph 13:13 Drug: Magnesium Sulfate 1 grams Route: IVPB; Infused Over: 1 hrs; Site: right femoral; ph 13:14 Drug: EPINEPHrine 0.1mg/mL 1:10,000 1 mg Route: IVP; Site: right femoral; ph 13:16 Drug: EPINEPHrine 0.1mg/mL 1:10,000 1 mg Route: IVP; Site: right femoral; ph 13:20 Drug: EPINEPHrine 0.1mg/mL 1:10,000 1 mg Route: IVP; Site: right femoral; ph 13:23 Drug: EPINEPHrine 0.1mg/mL 1:10,000 1 mg Route: IVP; Site: right femoral; ph Point of Care Testing: Blood Glucose: 09:32 Blood Glucose: High (>450 mg/dL); sg 12:55 Blood Glucose: High (>450 mg/dL); ph 09:32 notified, a serum glucose has been ordered as per protocol sg Ranges: Intake: 08:45 IV: 990ml; Total: 990ml. sg 11:00 IV: 990ml; Total: 1980ml. sg Outcome: 10:06 Decision to Hospitalize by Provider. rn 13:24 Outcome Patient iw 13:24 Patient : Time of 13:24 Pronounced by Heber Hannah MD Body to home. 13:24 Condition: 15:39 Patient left the ED. iw Signatures: Dispatcher [employer] EDMS Marlena Rust Steven, RN RN sg Jones, Susan sj Williams, Irene, RN RN iw Heber Hannah MD MD rn Woodley, Nydia cw1 Latha Monterroso, industrial relations director EKG Madie Whiting RN RN ph Madie Hawk RN ph Sanjuana Drake RN iw Corrections: (The following items were deleted from the chart) 07:52 07:43 Care prior to arrival: IV initiated. 20 GA, in the left antecubital area, Glucose sg check: 500 sg 10:34 10:10 BP 142 / 60; Pulse 110bpm; Resp 24bpm; Spontaneous; Pulse Ox 97% RA; Pain 7/10; sgsg 11:13 08:20 GI: Abdomen is round non-distended, Bowel sounds present X 4 quads. Reports lower sg abdominal pain, nausea, sg 13:35 08:20 Respiratory: Airway is patent Respiratory effort is even, unlabored, Respiratory sg pattern is regular, symmetrical, sg
--- NOTE | 2018-03-05 10:07 | EDPHYS ---
Physician Documentation [facility] Name: Christian Oneal Age: 37 yrs Sex: Male : 1980 Arrival Date: 03/05/2018 Time: 07:42 Bed 4 Private MD: ED Physician Heber Hannah HPI: 03/05 07:52 This 37 yrs old Male presents to ER via EMS with complaints of Toothache, rn High Blood Sugar. 07:52 The patient presents with pain. Onset: The symptoms/episode began/occurred at an rn unknown time. Duration: The symptoms are continuous. Severity of symptoms: At their worst the symptoms were moderate, in the emergency department the symptoms are unchanged. The patient has experienced similar episodes in the past. Reports was seen here yesterday for toothache, out of insulin for several days, unable to fill last night, reports still having pain in tooth, + tension of left neck, and nausea, + increased thirst and fatigue. . Historical: - Allergies: 07:53 No Known Allergies; sg - Home Meds: 07:53 Humalog 100 unit/mL Sub-Q soln after meals and before bedtime for Type 2 Diabetes sg Mellitus [Active]; lisinopril 10 mg Oral tab 1 tab once daily [Active]; nortriptyline 75 mg Oral cap 1 cap once daily [Active]; Propranolol Oral [Active]; Prozac 40 mg Oral cap 1 cap once daily [Active]; Seroquel 400 mg Oral tab 1 tab once daily [Active]; - PMHx: 07:43 Cirrhosis; Diabetes - IDDM; GI Bleed; Hypertension; Ulcers; sg - PSHx: 07:43 paracentisis; upper gi perforatoin; varices; sg - Immunization history:: Adult Immunizations not up to date. - Social history:: Smoking status: Patient/guardian denies using tobacco. - Family history:: not pertinent. - Hospitalizations: : No recent hospitalization is reported. ROS: 07:52 Constitutional: Negative for fever, chills, and weight loss, Eyes: Negative for injury, rn pain, redness, and discharge, Neck: Negative for injury,and swelling, Cardiovascular: Negative for chest pain, palpitations, and edema, Respiratory: Negative for shortness of breath, cough, wheezing, and pleuritic chest pain, Abdomen/GI: Negative for vomiting, diarrhea, and constipation, + abd pain MS/Extremity: Negative for injury and deformity, Skin: Negative for injury, rash, and discoloration, Neuro: Negative for numbness, tingling, and seizure. Exam: 07:52 Constitutional: This is a well developed, well nourished patient who is awake, appears rn weak and dehydrated Head/Face: Normocephalic, atraumatic. Eyes: Pupils equal round and reactive to light, extra-ocular motions intact. Lids and lashes normal. Conjunctiva and sclera are non-icteric and not injected. Cornea within normal limits. Periorbital areas with no swelling, redness, or edema. ENT: dry MM Chest/axilla: Normal chest wall appearance and motion. Nontender with no deformity. No lesions are appreciated. Cardiovascular: tachycardic, regular, no murmur Respiratory: + mild tachypnea, no retractions Abdomen/GI: soft, + periumbilical abd tenderness MS/ Extremity: Pulses equal, no cyanosis. Neurovascular intact. Full, normal range of motion. Equal circumference. Neuro: Awake, GCS 15, oriented to person, place, time, and situation. Cranial nerves II-XII grossly intact. Motor strength 5/5 in all extremities. Sensory grossly intact. Vital Signs: 07:49 BP 80 / 40; Pulse 108; Resp 27 S; Temp 97.4; Pulse Ox 96% on R/A; Pain 7/10; sg 08:15 BP 95 / 41; Pulse 109; Resp 27 S; Pulse Ox 96% on R/A; Pain 7/10; sg 09:41 Pulse 113 MON; Resp 28 S; Pulse Ox 98% on R/A; sg 10:10 BP 142 / 60; Pulse 110; Resp 24 S; Pulse Ox 97% on R/A; Pain 7/10; sg 10:34 BP 94 / 46; Pulse 110; Pulse Ox 98% on R/A; sg 11:29 BP 102 / 44; Pulse 104; Pulse Ox 97% on R/A; sg 12:00 BP 90 / 47; Pulse 112; Resp 26 S; Pulse Ox 96% on R/A; Pain 10/10; sg 13:23 Temp 95.1(R); ph 10:10 pt repositioned d/t laying on arm with BP cuff, will retake BP sg Bianca Coma Score: 08:15 Eye Response: spontaneous(4). Verbal Response: oriented(5). Motor Response: obeys sg commands(6). Total: 15. 09:41 Eye Response: spontaneous(4). Verbal Response: oriented(5). Motor Response: obeys sg commands(6). Total: 15. 10:10 Eye Response: spontaneous(4). Verbal Response: oriented(5). Motor Response: obeys sg commands(6). Total: 15. Procedures: 14:37 Intubation: Ventilated with 100% NRB prior to procedure. O2 saturation prior to rn flight was 92 %. Intubated orally using # 4 Ashley blade with 7.5 mm ETT. was successful on first attempt. Ventilated with Ambu bag. Cricoid pressure applied during procedure. Tube secured at right side of mouth measured 23 cm at teeth. Placement verified by CO2 detector with (+) color change, auscultating bilateral breath sounds, O2 saturation after procedure was 95 %. Patient tolerated well. Central Line: the site was prepped with Betadine, in sterile fashion, a triple lumen catheter was inserted, in the right femoral vein, in 1 attempts. placement was verified, by blood return, the site was dressed with Tegaderm, using sterile technique, the patient tolerated the procedure, well. MDM: 07:43 Patient medically screened. rn 10:04 Differential diagnosis: dental caries, DKA. 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 Counseling: I had a detailed discussion with the patient and/or guardian regarding: the historical points, exam findings, and any diagnostic results supporting the discharge/admit diagnosis, lab results, radiology results, the need for further work-up and treatment in the hospital. Response to treatment: the patient's symptoms have mildly improved after treatment, and as a result, I will admit patient. Admission orders: after a detailed discussion of the patient's condition and case, the admit orders are written by me. ED course: Pt without insulin for days, + hyperglycemia with acidosis and hypotension, ct abd with cirrhosis, nothing acute, will admit to Dr. Boyd, notified at 1000.. 13:26 ED course: Called to bedside for agitated patient, patient on floor, had pulled out IV, rn blood on floor, able to assist patient back into bed, patient was talking, tachypneic, but talking, following commands, then had periods of apnea, began bagging patient, transported to trauma room, continued bagging, intubated without meds, single attempt, good color change, ACLS began given absent pulse, asystole was initial rhythm, central line placed, notified admitting physician Dr Boyd of code 99. Patient coded for approx 30 min, given multiple epi, magnesium, bicarb, calcium, rapid bagging, ECHo without cardiac activity and no evidence of cardiac tamponade. Most likely patient slowly not compensating for the metabolic acidosis, despite fluids/bicarb, leading to worsening acidosis and respiratory failure/apnea. Intubated without change. Asystole/PEA entire time. Dr. boyd notifying family. Given 2mg valium PO earlier and fentanyl for his pain, even after given these meds, patient wide awake and yelling for water/ice/pain meds repeatedly so I do not feel like was overly sedated at this point. . 03/05 07:44 Order name: Basic Metabolic Panel; Complete Time: 09:20 rn 03/05 07:44 Order name: CBC with Diff; Complete Time: 08:51 rn 03/05 07:44 Order name: Creatinine for Radiology; Complete Time: 08:51 rn 03/05 07:44 Order name: Hepatic Function; Complete Time: 09:20 rn 03/05 07:44 Order name: Lipase; Complete Time: 09:20 rn 03/05 07:44 Order name: Urine Microscopic Only rn 03/05 07:55 Order name: Ketone, Serum; Complete Time: 12:05 rn 03/05 07:56 Order name: Osmolality, Serum; Complete Time: 12:48 rn 03/05 08:23 Order name: Glucose, Ancillary Testing; Complete Time: 08:51 EDMS 03/05 09:26 Order name: Basic Metabolic Panel iw 03/05 09:32 Order name: Glucose, Ancillary Testing; Complete Time: 09:58 EDMS 03/05 09:33 Order name: Glucose sg 03/05 09:34 Order name: Glucose, Ancillary Testing EDMS 03/05 09:41 Order name: ABG; Complete Time: 12:05 rn 03/05 09:32 Order name: Abdomen ; Complete Time: 09:58 EDMS 03/05 07:44 Order name: IV Saline Lock; Complete Time: 07:48 rn 03/05 07:44 Order name: Labs collected and sent; Complete Time: 07:48 rn 03/05 07:44 Order name: Glucose Level; Complete Time: 08:28 rn 03/05 07:44 Order name: EKG; Complete Time: 07:44 rn 03/05 07:44 Order name: EKG - Nurse/Tech; Complete Time: 08:51 rn 03/05 08:51 Order name: NPO; Complete Time: 08:51 sg Administered Medications: 07:48 Drug: NS 0.9% 1000 ml Route: IV; Rate: 1000 ml; Site: right antecubital; sg 08:45 Follow up: Response: No adverse reaction; IV Status: Completed infusion; IV Intake: sg 990ml 08:25 Drug: Insulin Regular Human 10 units {Co-Signature: ph (Madie Hawk RN).} Route: sg Sub-Q; Site: right upper arm; 09:30 Follow up: Response: No adverse reaction; No change in condition; Blood sugar is sg unchanged 09:28 Drug: Sodium Bicarbonate 1 amp Route: IVP; Site: right hand; sg 10:30 Follow up: Response: No adverse reaction sg 09:28 Drug: NS 0.9% 1000 ml Route: IV; Rate: 1000 ml; Site: right hand; sg 11:00 Follow up: Response: No adverse reaction; IV Status: Completed infusion; IV Intake: sg 990ml 09:49 Drug: Insulin Drip - (Insulin Regular Human 100 units, NS 0.9% 100 ml) {Co-Signature: sg iw (Sanjuana Drake RN).} Route: IV; Rate: calculated rate; Site: right hand; 11:07 Drug: fentaNYL (PF) 50 mcg Route: IVP; Site: right hand; sg 11:40 Follow up: Response: No adverse reaction; Pain is unchanged, physician notified sg 11:29 Drug: Valium 2 mg Route: PO; sg 12:00 Follow up: Response: No adverse reaction; Anxiety decreased sg 12:20 Drug: NS 0.9% 1000 ml Route: IV; Rate: 1000 ml; Site: right hand; sg 12:52 Drug: Sodium Bicarbonate 1 amp Route: IVP; Site: right antecubital; ph 12:54 Drug: EPINEPHrine 0.1mg/mL 1:10,000 1 mg Route: IVP; Site: right antecubital; ph 12:55 Drug: Sodium Bicarbonate 1 amp Route: IVP; Site: right antecubital; ph 12:56 Drug: EPINEPHrine 0.1mg/mL 1:10,000 1 mg Route: IVP; Site: right antecubital; ph 12:59 Drug: EPINEPHrine 0.1mg/mL 1:10,000 1 mg Route: IVP; Site: right antecubital; ph 13:03 Drug: EPINEPHrine 0.1mg/mL 1:10,000 1 mg Route: IVP; Site: right antecubital; ph 13:04 Drug: Calcium Chloride 1 grams Route: IVP; Site: right antecubital; ph 13:07 Drug: EPINEPHrine 0.1mg/mL 1:10,000 1 mg Route: IVP; Site: right femoral; ph 13:08 Drug: Sodium Bicarbonate 1 amp Route: IVP; Site: right femoral; ph 13:11 Drug: EPINEPHrine 0.1mg/mL 1:10,000 1 mg Route: IVP; Site: right femoral; ph 13:11 Drug: Calcium Chloride 1 grams Route: IVP; Site: right femoral; ph 13:13 Drug: Magnesium Sulfate 1 grams Route: IVPB; Infused Over: 1 hrs; Site: right femoral; ph 13:14 Drug: EPINEPHrine 0.1mg/mL 1:10,000 1 mg Route: IVP; Site: right femoral; ph 13:16 Drug: EPINEPHrine 0.1mg/mL 1:10,000 1 mg Route: IVP; Site: right femoral; ph 13:20 Drug: EPINEPHrine 0.1mg/mL 1:10,000 1 mg Route: IVP; Site: right femoral; ph 13:23 Drug: EPINEPHrine 0.1mg/mL 1:10,000 1 mg Route: IVP; Site: right femoral; ph Point of Care Testing: Blood Glucose: 09:32 Blood Glucose: High (>450 mg/dL); sg 12:55 Blood Glucose: High (>450 mg/dL); ph 09:32 notified, a serum glucose has been ordered as per protocol sg Ranges: Critical Glucose Levels:Adult <50 mg/dl or >400 mg/dl <40 mg/dl or >180 mg/dl Disposition: 03/05/18 10:06 Hospitalization ordered by Josephine Boyd for Inpatient Admission. Preliminary diagnosis are Diabetic Ketoacidosis, Hypotension, Acute kidney failure. - Bed requested for [facility] ER HOLD. - Status is Inpatient Admission. iw - Condition is Fair. - Problem is new. - Symptoms have improved. UTI on Admission? No Critical care time excluding procedures: 10:04 Critical care time: Bedside Care: 25 minutes, Consultation: 5 minutes. Total time: 30 rn minutes Signatures: Dispatcher [employer] EDMS Marlena Rust Eliu Conner RN GRAHAM Sanjuana Drake RN GRAHAM iw Heber Hannah MD MD rn Hall, Patricia, RN RN ph Astrid Ellsworth RN RN df Madie Hawk RN ph Sanjuana Drake RN iw Corrections: (The following items were deleted from the chart) 09:32 07:56 Abdomen Pelvis W Con+CT.RAD.BRZ ordered. EDSD EDMS 09:34 08:20 GLUCOSE+C.LAB.BRZ ordered. EDSD EDMS 09:34 09:17 GLUCOSE+C.LAB.BRZ reviewed. rn EDMS 12:00 10:06 Hospitalization Ordered by Josephine Boyd MD for Inpatient Admission. Preliminary iw diagnosis is Diabetic Ketoacidosis; Hypotension; Acute kidney failure. Bed requested for Intensive Care Unit. Status is Inpatient Admission. Condition is Fair. Problem is new. Symptoms have improved. UTI on Admission? No. rn 13:09 12:00 03/05/2018 10:06 Hospitalization Ordered by Josephine Boyd MD for Inpatient bd Admission. Preliminary diagnosis is Diabetic Ketoacidosis; Hypotension; Acute kidney failure. Bed requested for [facility] ER HOLD. Status is Inpatient Admission. Condition is Fair. Problem is new. Symptoms have improved. UTI on Admission? No. iw 13:58 13:09 03/05/2018 10:06 Hospitalization Ordered by Josephine Boyd MD for Inpatient df Admission. Preliminary diagnosis is Diabetic Ketoacidosis; Hypotension; Acute kidney failure. Bed requested for Intensive Care Unit. Status is Inpatient Admission. Condition is Fair. Problem is new. Symptoms have improved. UTI on Admission? No. bd 15:24 15:24 Urinalysis ordered. EDSD EDMS 15:24 15:24 Urinalysis ordered. EDMS EDMS 15:24 15:24 Acetone Level ordered. EDMS EDMS 15:24 15:24 Acetone Level ordered. EDMS EDMS 15:24 15:24 Acetone Level ordered. EDMS EDMS 15:24 15:24 Acetone Level ordered. EDMS EDMS 15:24 15:24 Acetone Level ordered. EDMS EDMS 15:24 15:24 Acetone Level ordered. EDMS EDMS 15:24 15:24 Basic Metabolic Panel ordered. EDMS EDMS 15:24 15:24 Basic Metabolic Panel ordered. EDMS EDMS 15:24 15:24 Basic Metabolic Panel ordered. EDMS EDMS 15:24 15:24 Basic Metabolic Panel ordered. EDMS EDMS 15:24 15:24 Basic Metabolic Panel ordered. EDMS EDMS 15:24 15:24 Basic Metabolic Panel ordered. EDMS EDMS 15:24 15:24 Magnesium ordered. EDMS EDMS 15:24 15:24 Magnesium ordered. EDMS EDMS 15:24 15:24 Magnesium ordered. EDMS EDMS 15:24 15:24 Magnesium ordered. EDMS EDMS 15:24 15:24 Magnesium ordered. EDMS EDMS 15:24 15:24 Magnesium ordered. EDMS EDMS 15:24 15:24 Phosphorus ordered. EDMS EDMS 15:24 15:24 Phosphorus ordered. EDMS EDMS 15:24 15:24 Phosphorus ordered. EDMS EDMS 15:24 15:24 Phosphorus ordered. EDMS EDMS 15:24 15:24 Phosphorus ordered. EDMS EDMS 15:24 15:24 Phosphorus ordered. EDMS EDMS 15:24 15:24 Urine Drug Screen ordered. EDMS EDMS 15:24 15:24 Urine Drug Screen ordered. EDMS EDMS 15:25 15:25 Acetone Level ordered. EDMS EDMS 15:25 15:25 Acetone Level ordered. EDMS EDMS 15:25 15:25 Acetone Level ordered. EDMS EDMS 15:25 15:25 Acetone Level ordered. EDMS EDMS 15:25 15:25 Basic Metabolic Panel ordered. EDMS EDMS 15:25 15:25 Basic Metabolic Panel ordered. EDMS EDMS 15:25 15:25 Basic Metabolic Panel ordered. EDMS EDMS 15:25 15:25 Basic Metabolic Panel ordered. EDMS EDMS 15:25 15:25 Magnesium ordered. EDMS EDMS 15:25 15:25 Magnesium ordered. EDMS EDMS 15:25 15:25 Magnesium ordered. EDMS EDMS 15:25 15:25 Magnesium ordered. EDMS EDMS 15:25 15:25 Phosphorus ordered. EDMS EDMS 15:25 15:25 Phosphorus ordered. EDMS EDMS 15:25 15:25 Phosphorus ordered. EDMS EDMS 15:25 15:25 Phosphorus ordered. EDMS EDMS 15:39 13:58 03/05/2018 10:06 Hospitalization Ordered by Josephine Boyd MD for Inpatient iw Admission. Preliminary diagnosis is Diabetic Ketoacidosis; Hypotension; Acute kidney failure. Bed requested for [facility] ER HOLD. Status is Inpatient Admission. Condition is Fair. Problem is new. Symptoms have improved. UTI on Admission? No. df
[2018-03-05 10:24] LABS: Arterial Blood Carboxyhemoglob 1.4 % (0-1.5); Blood O2 Saturation 93.3 % (92-98.5)
[2018-03-05] MEDS ORDERED: FENTANYL CITR 100 MCG/2 ML ONE (11:02)
[2018-03-05] MEDS ORDERED: ACETAMINOPHEN 500 MG TAB PO PRN (11:10)
[2018-03-05] MEDS ORDERED: ONDANSETRON 4 MG/2 ML VIAL IV PRN (11:10)
[2018-03-05] MEDS ORDERED: DIAZEPAM 2 MG TABLET ONE (11:27)
[2018-03-05] MEDS ORDERED: NACHLORIDE 0.45% 1,000 ML IV SCH (12:00)
[2018-03-05] MEDS ORDERED: chlordiazePOXIDE HCl 25 MG CAP PO SCH ×2 (12:00→18:00)
[2018-03-05 12:26] VITALS: BMI 36.6
[2018-03-05 12:28] VITALS: BP 90/42
[2018-03-05] MEDS ORDERED: RSI MEDICATION KIT IV ONE (12:49)
[2018-03-05] MEDS ORDERED: ROCURONIUM 50 MG/5 ML VIAL IV ONE (12:50)
[2018-03-05] MEDS ORDERED: EPINEPHrine 1 MG/10 ML SYR ONE (13:17)
--- NOTE | 2018-03-05 13:29 | EKG ---
Test Date: 2018-03-05 Test Time: 07:55:49 Tuft Machine Operator: STEPHANIE MEASUREMENT RESULTS: Intervals: Rate: 107 PA: 176 QRSD: 134 QT: 402 QTc: 536 Hardin: P: 57 PA: 176 QRS: 34 T: 30 INTERPRETIVE STATEMENTS: Sinus tachycardia Nonspecific intraventricular block Abnormal ECG Compared to ECG 03/04/2018 19:21:30 No significant changes Electronically Signed On 03-05-18 13:28:19 CDT by Sohan Ellsworth
[2018-03-05] MEDS ORDERED: PNEUMOCOCCAL VACCINE 0.5 ML IMVAC ONE (14:00)
[2018-03-05 15:49] VITALS: O2SAT 97
[2018-03-05 15:51] VITALS: TEMP 95.1
[2018-03-05] MEDS ORDERED: CLINDAMYCIN INJ 900 MG in NA CHLORIDE 0.9% 50 ML IV SCH (17:00)
--- NOTE | 2018-03-05 17:16 | P.SSS ---
Patient History Date of Service: 03/05/18 Primary Care Provider: None Reason for admission: Metabolic Acidosis History of Present Illness: This is a 29-year-old male with significant past medical history of diabetes type 2, hypertension, drug abuse, alcohol abuse, who presented to the ED complaining of having some nausea vomiting abdominal pain. Patient stated that he was here in the ER yesterday with a 2 day he it was found to have tooth abscess and was discharged home with prescription for antibiotics. Patient however was not able to fill his antibiotics and started feeling worse and thus decided to come to the ER. Patient has not been taking his insulin for past couple of weeks and states that he has been drinking since Monday. Patient had about 2 packs of beer on Monday and last night he states that he had about 4-5 cans of beer as well. After which she started having some nausea vomiting decided to come to the ER. In the ER patient was found to have metabolic acidosis with high anion gap, most likely secondary to diabetic ketoacidosis and alcohol ketoacidosis and this was referred over for admission for further care. Allergies No Known Allergies Allergy (Unverified 03/04/18 19:56) Home Medications: Fluoxetine HCl [Prozac] 40 mg PO 03/05/18 Insulin Lispro [Humalog*] unit SQ AC 03/05/18 Lisinopril 10 mg PO 03/05/18 Nortriptyline HCl [Pamelor] 75 mg PO 03/05/18 Propranolol [Inderal*] 03/05/18 Quetiapine Fumarate [Seroquel] 400 mg PO 03/05/18 - Past Medical/Surgical History Diabetic: Yes -: Upper GI bleed -: Paracentisis - Social History Smoking Status: Current some day smoker Alcohol use: Yes CD- Drugs: No Caffeine use: No Place of Residence: Home Review of Systems General: As per HPI Physical Examination - Vital Signs Temperature: 95.1 F Blood Pressure: 90/42 Pulse: 108 Respirations: 24 Pulse Ox (%): 98 - Physical Exam General: Alert, Oriented x2, Moderate distress, Other (Flushed and tachycardic. Appears to be in WD) HEENT: Atraumatic Neck: Supple, JVD not distended Respiratory: Normal air movement, Crackles/rales Cardiovascular: Normal S1 S2, Irregular heart rate/rhythm (Tachycardia) Gastrointestinal: Normal bowel sounds, Soft and benign, Non-distended, No tenderness Musculoskeletal: No tenderness, Swelling Integumentary: No rashes Neurological: Normal speech, Normal strength at 5/5 x4 extr, Normal tone Lymphatics: No axilla or inguinal lymphadenopathy - Studies Laboratory Data (last 24 hrs) 03/05/18 20:00: Sodium Cancelled, Potassium Cancelled, BUN Cancelled, Creatinine Cancelled, Glucose Cancelled, Phosphorus Cancelled, Magnesium Cancelled 03/05/18 16:00: Sodium Cancelled, Potassium Cancelled, BUN Cancelled, Creatinine Cancelled, Glucose Cancelled, Phosphorus Cancelled, Magnesium Cancelled 03/05/18 12:00: Sodium Cancelled, Potassium Cancelled, BUN Cancelled, Creatinine Cancelled, Glucose Cancelled, Phosphorus Cancelled, Magnesium Cancelled 03/05/18 09:33: Glucose Cancelled 03/05/18 09:29: Sodium Cancelled, Potassium Cancelled, BUN Cancelled, Creatinine Cancelled, Glucose Cancelled 03/05/18 08:35: Glucose Cancelled 03/05/18 08:20: Creatinine 1.49 H 03/05/18 08:20: WBC 9.9 D, Hgb 8.5 L D, Hct 28.9 L D, Plt Count 85 L D 03/05/18 08:20: Sodium 125 L, Potassium 6.5 H* D, BUN 37 H D, Creatinine 1.53 H , Glucose 856 H*, Total Bilirubin 1.5 H, AST 36, ALT 24, Alkaline Phosphatase 99 , Lipase 22 - Diagnosis (Problem(s)) (1) Metabolic acidosis Status: Acute Plan: Most Likely Multifactorial with DKA vs Alcohol Ketoacidosis (2) DKA (diabetic ketoacidoses) Status: Acute Qualifiers: Diabetes mellitus type: type 2 Diabetes mellitus complication detail: without coma Qualified Code(s): E11.10 - Type 2 diabetes mellitus with ketoacidosis without coma (3) Alcoholic ketoacidosis Status: Acute (4) Alcohol abuse Status: Chronic (5) Liver cirrhosis Status: Chronic Qualifiers: Hepatic cirrhosis type: alcoholic cirrhosis Ascites presence: with ascites Qualified Code(s): K70.31 - Alcoholic cirrhosis of liver with ascites (6) INGRID (acute kidney injury) Status: Acute (7) Cardiopulmonary arrest Status: Acute Treatment Summary: Patient initially was in to the hospital for high anion gap metabolic acidosis most likely secondary to DKA versus alcoholic ketoacidosis. Patient was started on insulin drip and IV fluids. Patient received 2 L of normal saline in the ER and was on insulin drip at 7 units per hr. Patient initially had an anion gap of over 20 and a glucose level of more than 800. After starting the insulin drip and fluids patient did have some improvement in his anion gap and his glucose level was down to around 300. Patient at that time started complaining of having some pain in his back and was found to be hypotensive. Patient was given another L of bolus of normal saline and was given fentanyl for pain management. Patient had some relief at that time however after 2 hr patient started complaining of some uneasiness. Nurse was at the bedside when patient passed out and lost a pulse and CPR was started immediately. Patient had respiratory failure along with cardiac arrest and was resuscitated for 35 min. Patient however was not able to be successfully resuscitated and code was called at 1:24 p.m. please look at the ER physician's note for the code detail. - Disposition Disposition: Condition: Followup: Unknown,U [Primary Care Provider] - Prvt As Needed
== END 2018-03-05 13:24 | disposition expired ==
LOC: ER 07:35 → ERHOLD 10:20 → UNDOADMIN 10:20 → ERHOLD 12:05 → ER 13:24
PROC: 0BH17EZ Insertion of Endotracheal Airway into Trachea, Via Natural or Artificial Opening (ICD-10-PCS; principal; 2018-03-05)
PROC: 5A1935Z Respiratory Ventilation, Less than 24 Consecutive Hours (ICD-10-PCS; 2018-03-05)
DX: E11.10 Type 2 diabetes mellitus with ketoacidosis without coma (principal); I95.9 Hypotension, unspecified; I46.9 Cardiac arrest, cause unspecified; N17.9 Acute kidney failure, unspecified; F10.10 Alcohol abuse, uncomplicated; K70.31 Alcoholic cirrhosis of liver with ascites; Z79.4 Long term (current) use of insulin
CPT/HCPCS: 31500; 36415; 74176; 80048; 80076; 82009; 82805; 82962; 83690; 83930; 85025; 92950; 93005; 96372; 99285; J0171; J3010; J3475; J7030